=== PATIENT | male | born 1945 | race Caucasian/White ===

== ENCOUNTER 2021-04-06 12:05 | Inpatient (IN) ==
[2021-04-06] MEDS ORDERED: SODIUM CHLORIDE 0.9% 1,000 ML IV STA ×2 (13:36→16:16)
[2021-04-06] MEDS ORDERED: ACETAMINOPHEN 500 MG TABLET PO STA (13:39)
[2021-04-06 14:31] LABS: Basophils # 0.1 10*3/uL (0.0-0.2); Basophils % 0.4 % (0.0-0.8); Eosinophils % 0.2 % (0.00-10.9); Hematocrit 35.6 VOL% (42.0-52.0); Hemoglobin 11.9 GM/DL (14.0-18.0); Immature Granulocytes % 0.7 %; Immature Granulocytes Absolute 0.09 #; Lymphocytes # 1.2 10*3/uL (1.4-4.0); Lymphocytes % 9.1 % (21.2-54.2); Mean Corpuscular HGB Conc 33.4 GM/DL (32-36); Mean Corpuscular Volume 90.6 FL (87-102); Mean Platelet Volume 10.8 FL (9.6-12.0); Monocytes % 18.1 % (1.7-12.7); Neutrophils % 71.5 % (38.7-73.9); Platelet Count 426 T/CUMM (130-400); Red Blood Count 3.93 MC/CUMM (3.8-5.5); Red Cell Distribution Width 13.7 % (9.3-17.3); White Blood Count 13.5 T/CUMM (4-12)
[2021-04-06 14:55] LABS: Albumin 2.8 G/DL (3.4-5.0); Bilirubin,Total 1.7 MG/DL (0.20-1.00); Calcium 9.7 MG/DL (8.5-10.1); Osmolality,Calculated 271.4 MOS/KG (273-304); Potassium 3.4 MMOL/L (3.5-5.1); Total Protein 8.7 G/DL (6.4-8.2)
[2021-04-06 15:00] LABS: Lymphocytes 11 % (20-55); Segmented Neutrophils 73 % (50-85); Total Cells Counted 100
[2021-04-06 15:05] LABS: Anisocytosis Slight
[2021-04-06 15:06] LABS: Hypochromasia Slight
[2021-04-06] MEDS ORDERED: PIPERACILLIN/TAZOBACTAM 3,375 MG in SODIUM CHLORIDE 0.9% 100 ML IV STA (16:16)
[2021-04-06] MEDS ORDERED: SIMETHICONE CHEW 125 MG TABLET PO PRN (16:48)
[2021-04-06] MEDS ORDERED: DOCUSATE SODIUM 100 MG CAPSULE PO PRN (16:48)
[2021-04-06] MEDS ORDERED: DEXTROSE 50% 25 GM/50 ML VIAL IV PRN (16:48)
[2021-04-06] MEDS ORDERED: GLUCAGON 1 MG VIAL IM PRN (16:48)
[2021-04-06] MEDS ORDERED: hydrALAZINE 20 MG/1 ML VIAL IV PRN (16:48)
[2021-04-06] MEDS ORDERED: diphenhydrAMINE CAP 25 MG CAPSULE PO PRN (16:48)
[2021-04-06] MEDS ORDERED: ONDANSETRON 4 MG/2 ML VIAL IV PRN (16:48)
[2021-04-06 16:57] LABS: Bilirubin,Urine Small mg/dL (Negative); Blood, Urine Negative (Negative); Glucose,Urine (UA) Negative (Negative); Hyaline Casts,Urine 7 /LPF (0-3); Ketones,Urine Negative (Negative); Mucus,Urine Occasional /LPF (Occasional); Nitrite,Urine Negative (Negative); Protein,Urine 100 MG/DL; RBC,Urine 5 /HPF (0-4); Squamous Epithelial Cell,Urine Occasional /HPF (0-10); Urine Appearance Slightly Hazy (Clear); Urine Color Amber (Yellow); Urine Specific Gravity 1.021 (1.001-1.035)
[2021-04-06] MEDS: LACTATED RINGERS 1,000 ML IV SCH (18:15)
[2021-04-06] MEDS: cefTRIAXone 1,000 MG in SODIUM CHLORIDE 0.9% 100 ML IV SCH (18:16)
[2021-04-06] MEDS: ENOXAPARIN 40 MG/0.4 ML SYRINGE SUBCUT SCH (21:59)
[2021-04-06] MEDS: allopurinoL 100 MG TABLET PO SCH (21:59)
[2021-04-06] MEDS: METOPROLOL TARTRATE 25 MG TABLET PO SCH (21:59)
[2021-04-07 05:04] LABS: Basophils # 0.1 10*3/uL (0.0-0.2); Basophils % 0.4 % (0.0-0.8); Eosinophils # 0.1 10*3/uL (0.0-0.87); Eosinophils % 0.7 % (0.00-10.9); Hemoglobin 11.2 GM/DL (14.0-18.0); Immature Granulocytes % 0.7 %; Immature Granulocytes Absolute 0.09 #; Lymphocytes # 2.2 10*3/uL (1.4-4.0); Lymphocytes % 17.2 % (21.2-54.2); Mean Corpuscular HGB Conc 33.9 GM/DL (32-36); Mean Corpuscular Volume 91.4 FL (87-102); Mean Platelet Volume 11.1 FL (9.6-12.0); Monocytes % 16.8 % (1.7-12.7); Neutrophils % 64.2 % (38.7-73.9); Platelet Count 393 T/CUMM (130-400); Red Blood Count 3.61 MC/CUMM (3.8-5.5); Red Cell Distribution Width 13.6 % (9.3-17.3); White Blood Count 12.8 T/CUMM (4-12)
[2021-04-07 05:31] LABS: Albumin 2.3 G/DL (3.4-5.0); Bilirubin,Direct 1.27 MG/DL (0.0-0.20); Bilirubin,Indirect 0.7 MG/DL (0.0-1.0); Total Protein 7.6 G/DL (6.4-8.2)
[2021-04-07 05:36] LABS: Calcium 9.4 MG/DL (8.5-10.1); Osmolality,Calculated 272.1 MOS/KG (273-304); Potassium 2.9 MMOL/L (3.5-5.1); Risk Ratio 2.76; Total Cells Counted 100; VLDL Cholesterol 13.2 MG/DL
[2021-04-07 05:37] LABS: Band Neutrophils 4 % (0-10); Lymphocytes 17 % (20-55); Platelet Estimate Increased; Segmented Neutrophils 67 % (50-85)
[2021-04-07 05:57] LABS: Anisocytosis 1+; Hypochromasia Slight
[2021-04-07] MEDS: POTASSIUM CHLORIDE 20 MEQ TABLET PO SCH (08:33)
[2021-04-07] MEDS: PANTOPRAZOLE 40 MG TABLET PO SCH (08:33)
[2021-04-07] MEDS: METOPROLOL TARTRATE 25 MG TABLET PO SCH ×2 (08:33→20:27)
[2021-04-07] MEDS: allopurinoL 100 MG TABLET PO SCH ×2 (08:34→20:27)
[2021-04-07] MEDS: TAMSULOSIN 0.4 MG CAPSULE PO SCH (08:34)
[2021-04-07] MEDS: ACETAMINOPHEN 325 MG TABLET PO PRN (08:39)
[2021-04-07] MEDS ORDERED: hydroCHLOROthiazide 12.5 MG CAPSULE PO SCH (09:00)
[2021-04-07] MEDS: POTASSIUM CHLORIDE 20 MEQ TABLET PO PRN ×3 (11:41→17:50)
[2021-04-07] MEDS: cefTRIAXone 1,000 MG in SODIUM CHLORIDE 0.9% 100 ML IV SCH (18:47)
[2021-04-07] MEDS: SIMVASTATIN 20 MG TABLET PO SCH (20:27)
[2021-04-07] MEDS: LACTATED RINGERS 1,000 ML IV SCH ×2 (20:28→23:29)
[2021-04-07] MEDS: ENOXAPARIN 40 MG/0.4 ML SYRINGE SUBCUT SCH (20:28)
[2021-04-08] MEDS: POTASSIUM CHLORIDE 20 MEQ TABLET PO PRN (05:11)
[2021-04-08 06:12] LABS: Basophils % 0.3 % (0.0-0.8); Eosinophils # 0.1 10*3/uL (0.0-0.87); Hemoglobin 11.8 GM/DL (14.0-18.0); Immature Granulocytes % 0.8 %; Immature Granulocytes Absolute 0.11 #; Lymphocytes # 1.4 10*3/uL (1.4-4.0); Lymphocytes % 10.4 % (21.2-54.2); Mean Corpuscular HGB Conc 32.8 GM/DL (32-36); Mean Corpuscular Volume 92.3 FL (87-102); Mean Platelet Volume 11.2 FL (9.6-12.0); Monocytes % 10.9 % (1.7-12.7); Neutrophils % 76.6 % (38.7-73.9); Platelet Count 388 T/CUMM (130-400); Red Cell Distribution Width 13.9 % (9.3-17.3); White Blood Count 13.4 T/CUMM (4-12)
[2021-04-08 06:47] LABS: Albumin 2.1 G/DL (3.4-5.0); Bilirubin,Total 1.1 MG/DL (0.20-1.00); Calcium 9.9 MG/DL (8.5-10.1); Potassium 3.1 MMOL/L (3.5-5.1); Total Protein 7.8 G/DL (6.4-8.2)
[2021-04-08 07:14] LABS: Hepatitis B Core IgM Quant 0.09 Index; Hepatitis B Surface Ag Quant 0.11 Index; Hepatitis B Surface Ag Result Non-Reactive (NonReactive); Hepatitis C Virus Ab Quant 0.07 Index; Hepatitis C Virus Ab Result Non-Reactive (NonReactive)
[2021-04-08] MEDS ORDERED: POTASSIUM CHLORIDE 20 MEQ TABLET PO ONE (08:00)
[2021-04-08] MEDS: amLODIPine 5 MG TABLET PO SCH (08:56)
[2021-04-08] MEDS: allopurinoL 100 MG TABLET PO SCH ×2 (08:56→22:19)
[2021-04-08] MEDS: POTASSIUM CHLORIDE 20 MEQ TABLET PO SCH (08:56)
[2021-04-08] MEDS: TAMSULOSIN 0.4 MG CAPSULE PO SCH (08:56)
[2021-04-08] MEDS: METOPROLOL TARTRATE 25 MG TABLET PO SCH ×2 (08:57→22:18)
[2021-04-08] MEDS: PANTOPRAZOLE 40 MG TABLET PO SCH (08:57)
[2021-04-08] MEDS: ACETAMINOPHEN 325 MG TABLET PO PRN (09:41)
[2021-04-08] MEDS: LACTATED RINGERS 1,000 ML IV SCH (14:48)
[2021-04-08] MEDS: cefTRIAXone 1,000 MG in SODIUM CHLORIDE 0.9% 100 ML IV SCH (17:19)
[2021-04-08] MEDS: SIMVASTATIN 20 MG TABLET PO SCH (22:18)
[2021-04-08] MEDS: ENOXAPARIN 40 MG/0.4 ML SYRINGE SUBCUT SCH (22:19)
[2021-04-09] MEDS: LACTATED RINGERS 1,000 ML IV SCH ×5 (00:48→22:22)
[2021-04-09 04:55] LABS: Basophils # 0.1 10*3/uL (0.0-0.2); Basophils % 0.3 % (0.0-0.8); Eosinophils # 0.2 10*3/uL (0.0-0.87); Eosinophils % 0.8 % (0.00-10.9); Hematocrit 37.3 VOL% (42.0-52.0); Hemoglobin 12.2 GM/DL (14.0-18.0); Immature Granulocytes Absolute 0.18 #; Lymphocytes # 1.9 10*3/uL (1.4-4.0); Lymphocytes % 10.6 % (21.2-54.2); Mean Corpuscular HGB Conc 32.7 GM/DL (32-36); Mean Corpuscular Volume 91.9 FL (87-102); Mean Platelet Volume 11.2 FL (9.6-12.0); Monocytes % 7.4 % (1.7-12.7); Neutrophils % 79.9 % (38.7-73.9); Platelet Count 549 T/CUMM (130-400); Red Blood Count 4.06 MC/CUMM (3.8-5.5); Red Cell Distribution Width 13.9 % (9.3-17.3); White Blood Count 18.3 T/CUMM (4-12)
[2021-04-09 05:51] LABS: Bilirubin,Total 1.4 MG/DL (0.20-1.00); Calcium 10.5 MG/DL (8.5-10.1); Osmolality,Calculated 275.1 MOS/KG (273-304); Potassium 3.4 MMOL/L (3.5-5.1); Total Protein 8.3 G/DL (6.4-8.2)
[2021-04-09] MEDS: POTASSIUM CHLORIDE RIDER 10 MEQ/100 ML PREMIX IV PRN ×3 (08:30→12:30)
[2021-04-09] MEDS ORDERED: METOPROLOL TARTRATE 5 MG/5 ML VIAL IV ONE (08:43)
[2021-04-09] MEDS: PANTOPRAZOLE 40 MG TABLET PO SCH (09:51)
[2021-04-09] MEDS: TAMSULOSIN 0.4 MG CAPSULE PO SCH (09:51)
[2021-04-09] MEDS: POTASSIUM CHLORIDE 20 MEQ TABLET PO SCH (09:51)
[2021-04-09] MEDS: allopurinoL 100 MG TABLET PO SCH ×2 (09:51→20:02)
[2021-04-09] MEDS: METOPROLOL TARTRATE 25 MG TABLET PO SCH ×2 (09:51→20:01)
[2021-04-09] MEDS: amLODIPine 5 MG TABLET PO SCH (09:51)
[2021-04-09] MEDS: cefTRIAXone 1,000 MG in SODIUM CHLORIDE 0.9% 100 ML IV SCH (17:22)
[2021-04-09] MEDS: SIMVASTATIN 20 MG TABLET PO SCH (20:01)
[2021-04-09] MEDS: ENOXAPARIN 40 MG/0.4 ML SYRINGE SUBCUT SCH (20:16)
[2021-04-10 06:16] LABS: Basophils # 0.1 10*3/uL (0.0-0.2); Basophils % 0.5 % (0.0-0.8); Eosinophils # 0.4 10*3/uL (0.0-0.87); Eosinophils % 2.8 % (0.00-10.9); Hematocrit 41.2 VOL% (42.0-52.0); Immature Granulocytes % 1.1 %; Immature Granulocytes Absolute 0.16 #; Lymphocytes # 2.1 10*3/uL (1.4-4.0); Lymphocytes % 14.9 % (21.2-54.2); Mean Corpuscular HGB Conc 31.6 GM/DL (32-36); Mean Corpuscular Volume 95.4 FL (87-102); Mean Platelet Volume 12.7 FL (9.6-12.0); Monocytes % 8.2 % (1.7-12.7); Neutrophils % 72.5 % (38.7-73.9); Red Blood Count 4.32 MC/CUMM (3.8-5.5); Red Cell Distribution Width 14.6 % (9.3-17.3); White Blood Count 14.1 T/CUMM (4-12)
[2021-04-10 06:37] LABS: Platelet Count 342 T/CUMM (130-400)
[2021-04-10 07:20] LABS: Albumin 2.2 G/DL (3.4-5.0); Calcium 9.9 MG/DL (8.5-10.1); Osmolality,Calculated 281.7 MOS/KG (273-304); Potassium 3.6 MMOL/L (3.5-5.1); Total Protein 7.8 G/DL (6.4-8.2)
[2021-04-10] MEDS: TAMSULOSIN 0.4 MG CAPSULE PO SCH (08:19)
[2021-04-10] MEDS: LACTATED RINGERS 1,000 ML IV SCH ×2 (08:19→14:51)
[2021-04-10] MEDS: PANTOPRAZOLE 40 MG TABLET PO SCH (08:20)
[2021-04-10] MEDS: allopurinoL 100 MG TABLET PO SCH ×2 (08:20→20:16)
[2021-04-10] MEDS: POTASSIUM CHLORIDE 20 MEQ TABLET PO SCH (08:20)
[2021-04-10] MEDS: METOPROLOL TARTRATE 25 MG TABLET PO SCH (08:20)
[2021-04-10] MEDS: amLODIPine 5 MG TABLET PO SCH (08:20)
[2021-04-10] MEDS: metroNIDAZOLE INJ 500 MG in PREMIX 1 EACH IV SCH ×2 (11:28→20:11)
[2021-04-10] MEDS: CIPROFLOXACIN INJ 400 MG/200 ML PREMIX IV SCH (13:52)
[2021-04-10] MEDS: METOPROLOL TARTRATE 5 MG/5 ML VIAL IV SCH (17:17)
[2021-04-10] MEDS: ENOXAPARIN 40 MG/0.4 ML SYRINGE SUBCUT SCH (20:11)
[2021-04-10] MEDS: SIMVASTATIN 20 MG TABLET PO SCH (20:16)
[2021-04-11] MEDS: CIPROFLOXACIN INJ 400 MG/200 ML PREMIX IV SCH ×2 (00:36→15:00)
[2021-04-11] MEDS: METOPROLOL TARTRATE 5 MG/5 ML VIAL IV SCH ×4 (00:36→18:14)
[2021-04-11] MEDS: metroNIDAZOLE INJ 500 MG in PREMIX 1 EACH IV SCH ×3 (03:20→18:57)
[2021-04-11] MEDS: LACTATED RINGERS 1,000 ML IV SCH ×3 (03:20→15:36)
[2021-04-11 05:12] LABS: Basophils # 0.1 10*3/uL (0.0-0.2); Basophils % 0.5 % (0.0-0.8); Eosinophils # 0.4 10*3/uL (0.0-0.87); Eosinophils % 1.8 % (0.00-10.9); Hematocrit 39.7 VOL% (42.0-52.0); Hemoglobin 12.8 GM/DL (14.0-18.0); Immature Granulocytes % 1.2 %; Immature Granulocytes Absolute 0.25 #; Lymphocytes # 2.5 10*3/uL (1.4-4.0); Lymphocytes % 11.7 % (21.2-54.2); Mean Corpuscular HGB Conc 32.2 GM/DL (32-36); Mean Corpuscular Volume 93.2 FL (87-102); Mean Platelet Volume 11.4 FL (9.6-12.0); Monocytes % 8.7 % (1.7-12.7); Neutrophils % 76.1 % (38.7-73.9); Platelet Count 583 T/CUMM (130-400); Red Blood Count 4.26 MC/CUMM (3.8-5.5); Red Cell Distribution Width 14.8 % (9.3-17.3); White Blood Count 21.2 T/CUMM (4-12)
[2021-04-11 05:35] LABS: Eosinophils 3 % (0-10); Hypochromasia 1+; Lymphocytes 17 % (20-55); Segmented Neutrophils 74 % (50-85); Total Cells Counted 100
[2021-04-11 05:36] LABS: Microcytosis 1+
[2021-04-11 08:08] LABS: INR 1.4
[2021-04-11 08:16] LABS: Albumin 2.2 G/DL (3.4-5.0); Bilirubin,Total 1.7 MG/DL (0.20-1.00); Calcium 10.1 MG/DL (8.5-10.1); Potassium 3.7 MMOL/L (3.5-5.1); Total Protein 8.7 G/DL (6.4-8.2)
[2021-04-11] MEDS: allopurinoL 100 MG TABLET PO SCH ×2 (10:02→21:22)
[2021-04-11] MEDS ORDERED: MAGNESIUM SULF RIDER 2 GM/50 ML PREMIX IV ONE (12:51)
[2021-04-11] MEDS: POTASSIUM CHLORIDE 20 MEQ TABLET PO SCH (16:34)
[2021-04-11] MEDS: TAMSULOSIN 0.4 MG CAPSULE PO SCH (16:34)
[2021-04-11] MEDS: amLODIPine 5 MG TABLET PO SCH (16:35)
[2021-04-11] MEDS: PANTOPRAZOLE 40 MG TABLET PO SCH (16:37)
[2021-04-11] MEDS: SIMVASTATIN 20 MG TABLET PO SCH (21:22)
[2021-04-11] MEDS: ENOXAPARIN 40 MG/0.4 ML SYRINGE SUBCUT SCH (21:22)
[2021-04-12] MEDS: METOPROLOL TARTRATE 5 MG/5 ML VIAL IV SCH ×5 (00:24→23:55)
[2021-04-12] MEDS: CIPROFLOXACIN INJ 400 MG/200 ML PREMIX IV SCH ×3 (00:24→23:55)
[2021-04-12] MEDS: LACTATED RINGERS 1,000 ML IV SCH ×3 (03:30→20:38)
[2021-04-12] MEDS: metroNIDAZOLE INJ 500 MG in PREMIX 1 EACH IV SCH ×3 (03:30→20:38)
[2021-04-12 06:57] LABS: Albumin 2.1 G/DL (3.4-5.0); Bilirubin,Total 2.7 MG/DL (0.20-1.00); Calcium 9.7 MG/DL (8.5-10.1); Osmolality,Calculated 274.8 MOS/KG (273-304); Potassium 3.5 MMOL/L (3.5-5.1)
[2021-04-12 08:01] LABS: Basophils # 0.1 10*3/uL (0.0-0.2); Basophils % 0.3 % (0.0-0.8); Eosinophils # 0.3 10*3/uL (0.0-0.87); Eosinophils % 1.4 % (0.00-10.9); Hematocrit 36.7 VOL% (42.0-52.0); Hemoglobin 11.7 GM/DL (14.0-18.0); Immature Granulocytes % 1.2 %; Immature Granulocytes Absolute 0.25 #; Lymphocytes # 2.2 10*3/uL (1.4-4.0); Lymphocytes % 10.8 % (21.2-54.2); Mean Corpuscular HGB Conc 31.9 GM/DL (32-36); Mean Corpuscular Volume 92.7 FL (87-102); Mean Platelet Volume 10.8 FL (9.6-12.0); Monocytes % 7.7 % (1.7-12.7); Neutrophils % 78.6 % (38.7-73.9); Platelet Count 598 T/CUMM (130-400); Red Blood Count 3.96 MC/CUMM (3.8-5.5); Red Cell Distribution Width 14.9 % (9.3-17.3); White Blood Count 20.3 T/CUMM (4-12)
[2021-04-12] MEDS: amLODIPine 5 MG TABLET PO SCH (08:08)
[2021-04-12] MEDS: TAMSULOSIN 0.4 MG CAPSULE PO SCH (08:08)
[2021-04-12] MEDS: allopurinoL 100 MG TABLET PO SCH ×2 (08:09→20:37)
[2021-04-12] MEDS: POTASSIUM CHLORIDE 20 MEQ TABLET PO SCH (08:09)
[2021-04-12] MEDS: PANTOPRAZOLE 40 MG TABLET PO SCH (08:09)
[2021-04-12 08:13] LABS: Eosinophils 1 % (0-10); Hypochromasia 1+; Lymphocytes 15 % (20-55); Microcytosis 1+; Platelet Estimate Adequate; Segmented Neutrophils 81 % (50-85); Total Cells Counted 100
[2021-04-12] MEDS: ACETAMINOPHEN 325 MG TABLET PO PRN (15:19)
[2021-04-12] MEDS: SIMVASTATIN 20 MG TABLET PO SCH (20:37)
[2021-04-12] MEDS: ENOXAPARIN 40 MG/0.4 ML SYRINGE SUBCUT SCH (20:38)
[2021-04-13] MEDS: metroNIDAZOLE INJ 500 MG in PREMIX 1 EACH IV SCH ×3 (04:20→20:24)
[2021-04-13 05:15] LABS: Basophils # 0.1 10*3/uL (0.0-0.2); Basophils % 0.4 % (0.0-0.8); Eosinophils # 0.2 10*3/uL (0.0-0.87); Hematocrit 33.2 VOL% (42.0-52.0); Hemoglobin 10.7 GM/DL (14.0-18.0); Immature Granulocytes % 1.6 %; Immature Granulocytes Absolute 0.37 #; Lymphocytes # 2.8 10*3/uL (1.4-4.0); Lymphocytes % 11.8 % (21.2-54.2); Mean Corpuscular HGB Conc 32.2 GM/DL (32-36); Mean Corpuscular Volume 92.2 FL (87-102); Mean Platelet Volume 10.7 FL (9.6-12.0); Monocytes % 8.4 % (1.7-12.7); Neutrophils % 76.8 % (38.7-73.9); Platelet Count 560 T/CUMM (130-400); Red Cell Distribution Width 14.8 % (9.3-17.3); White Blood Count 23.4 T/CUMM (4-12)
[2021-04-13 05:20] LABS: Calcium 9.4 MG/DL (8.5-10.1); Osmolality,Calculated 277.5 MOS/KG (273-304); Potassium 3.2 MMOL/L (3.5-5.1)
[2021-04-13] MEDS: METOPROLOL TARTRATE 5 MG/5 ML VIAL IV SCH ×4 (05:37→23:59)
[2021-04-13 05:38] LABS: Band Neutrophils 1 % (0-10); Eosinophils 2 % (0-10); Hypochromasia 1+; Lymphocytes 10 % (20-55); Microcytosis 1+; Platelet Estimate Increased; Segmented Neutrophils 81 % (50-85); Total Cells Counted 100
[2021-04-13] MEDS: POTASSIUM CHLORIDE 20 MEQ TABLET PO SCH (08:01)
[2021-04-13] MEDS: PANTOPRAZOLE 40 MG TABLET PO SCH (08:01)
[2021-04-13] MEDS: TAMSULOSIN 0.4 MG CAPSULE PO SCH (08:01)
[2021-04-13] MEDS: allopurinoL 100 MG TABLET PO SCH ×2 (08:01→20:26)
[2021-04-13] MEDS: amLODIPine 5 MG TABLET PO SCH (08:01)
[2021-04-13] MEDS: LACTATED RINGERS 1,000 ML IV SCH ×3 (08:02→23:59)
[2021-04-13] MEDS ORDERED: MAGNESIUM SULF RIDER 4 GM/100 ML PREMIX IV PRN (10:54)
[2021-04-13] MEDS: CIPROFLOXACIN INJ 400 MG/200 ML PREMIX IV SCH ×2 (12:11→23:58)
[2021-04-13] MEDS: MAGNESIUM SULF RIDER 2 GM/50 ML PREMIX IV PRN (14:43)
[2021-04-13] MEDS: POTASSIUM CHLORIDE RIDER 10 MEQ/100 ML PREMIX IV PRN ×2 (16:58→18:11)
[2021-04-13] MEDS: SIMVASTATIN 20 MG TABLET PO SCH (20:26)
[2021-04-13] MEDS: ENOXAPARIN 40 MG/0.4 ML SYRINGE SUBCUT SCH (20:26)
[2021-04-14] MEDS: LACTATED RINGERS 1,000 ML IV SCH ×3 (01:12→18:34)
[2021-04-14] MEDS: metroNIDAZOLE INJ 500 MG in PREMIX 1 EACH IV SCH ×3 (02:51→20:45)
[2021-04-14 05:18] LABS: Basophils # 0.1 10*3/uL (0.0-0.2); Basophils % 0.5 % (0.0-0.8); Eosinophils # 0.3 10*3/uL (0.0-0.87); Eosinophils % 1.3 % (0.00-10.9); Hematocrit 33.7 VOL% (42.0-52.0); Hemoglobin 10.8 GM/DL (14.0-18.0); Immature Granulocytes % 1.9 %; Immature Granulocytes Absolute 0.42 #; Lymphocytes # 2.5 10*3/uL (1.4-4.0); Lymphocytes % 11.7 % (21.2-54.2); Mean Corpuscular Volume 93.4 FL (87-102); Mean Platelet Volume 10.9 FL (9.6-12.0); Neutrophils % 76.6 % (38.7-73.9); Platelet Count 507 T/CUMM (130-400); Red Blood Count 3.61 MC/CUMM (3.8-5.5); Red Cell Distribution Width 15.1 % (9.3-17.3); White Blood Count 21.7 T/CUMM (4-12)
[2021-04-14] MEDS: METOPROLOL TARTRATE 5 MG/5 ML VIAL IV SCH ×4 (05:20→23:54)
[2021-04-14 05:37] LABS: Calcium 9.4 MG/DL (8.5-10.1); Potassium 3.5 MMOL/L (3.5-5.1)
[2021-04-14 05:40] LABS: Eosinophils 3 % (0-10); Lymphocytes 5 % (20-55); Platelet Estimate Increased; Segmented Neutrophils 82 % (50-85); Total Cells Counted 100
[2021-04-14] MEDS: TAMSULOSIN 0.4 MG CAPSULE PO SCH (08:22)
[2021-04-14] MEDS: POTASSIUM CHLORIDE 20 MEQ TABLET PO SCH (08:22)
[2021-04-14] MEDS: allopurinoL 100 MG TABLET PO SCH ×2 (08:22→20:45)
[2021-04-14] MEDS: amLODIPine 5 MG TABLET PO SCH (08:22)
[2021-04-14] MEDS: PANTOPRAZOLE 40 MG TABLET PO SCH (08:22)
[2021-04-14] MEDS: CIPROFLOXACIN INJ 400 MG/200 ML PREMIX IV SCH ×2 (11:58→23:54)
[2021-04-14] MEDS: ENOXAPARIN 40 MG/0.4 ML SYRINGE SUBCUT SCH (20:45)
[2021-04-14] MEDS: SIMVASTATIN 20 MG TABLET PO SCH (20:45)
[2021-04-15] MEDS: metroNIDAZOLE INJ 500 MG in PREMIX 1 EACH IV SCH ×3 (03:19→21:17)
[2021-04-15] MEDS: METOPROLOL TARTRATE 5 MG/5 ML VIAL IV SCH ×3 (05:25→17:05)
[2021-04-15 05:36] LABS: Basophils # 0.1 10*3/uL (0.0-0.2); Basophils % 0.5 % (0.0-0.8); Eosinophils # 0.3 10*3/uL (0.0-0.87); Eosinophils % 1.7 % (0.00-10.9); Hematocrit 32.9 VOL% (42.0-52.0); Hemoglobin 10.6 GM/DL (14.0-18.0); Immature Granulocytes % 2.2 %; Immature Granulocytes Absolute 0.44 #; Lymphocytes # 2.8 10*3/uL (1.4-4.0); Lymphocytes % 14.1 % (21.2-54.2); Mean Corpuscular HGB Conc 32.2 GM/DL (32-36); Mean Corpuscular Volume 92.9 FL (87-102); Mean Platelet Volume 10.8 FL (9.6-12.0); Monocytes % 7.6 % (1.7-12.7); Neutrophils % 73.9 % (38.7-73.9); Platelet Count 503 T/CUMM (130-400); Red Blood Count 3.54 MC/CUMM (3.8-5.5); White Blood Count 19.6 T/CUMM (4-12)
[2021-04-15 06:19] LABS: Calcium 9.3 MG/DL (8.5-10.1); Osmolality,Calculated 272.7 MOS/KG (273-304); Potassium 3.4 MMOL/L (3.5-5.1)
[2021-04-15] MEDS: MAGNESIUM SULF RIDER 2 GM/50 ML PREMIX IV PRN (06:29)
[2021-04-15] MEDS: POTASSIUM CHLORIDE 20 MEQ TABLET PO SCH (08:24)
[2021-04-15] MEDS: PANTOPRAZOLE 40 MG TABLET PO SCH (08:25)
[2021-04-15] MEDS: TAMSULOSIN 0.4 MG CAPSULE PO SCH (08:25)
[2021-04-15] MEDS: allopurinoL 100 MG TABLET PO SCH ×2 (08:25→21:15)
[2021-04-15] MEDS: LACTATED RINGERS 1,000 ML IV SCH ×2 (08:25→21:16)
[2021-04-15] MEDS: POTASSIUM CHLORIDE 20 MEQ TABLET PO PRN ×3 (08:25→13:20)
[2021-04-15] MEDS: amLODIPine 5 MG TABLET PO SCH (08:25)
[2021-04-15] MEDS: POLYETHYLENE GLYCOL POWDER 17 GM PACK PO SCH (10:58)
[2021-04-15] MEDS: CIPROFLOXACIN INJ 400 MG/200 ML PREMIX IV SCH (12:21)
[2021-04-15] MEDS: DOCUSATE SODIUM 100 MG CAPSULE PO SCH (21:15)
[2021-04-15] MEDS: ENOXAPARIN 40 MG/0.4 ML SYRINGE SUBCUT SCH (21:16)
[2021-04-15] MEDS: SIMVASTATIN 20 MG TABLET PO SCH (21:16)
[2021-04-16] MEDS: METOPROLOL TARTRATE 5 MG/5 ML VIAL IV SCH ×4 (00:03→17:52)
[2021-04-16] MEDS: CIPROFLOXACIN INJ 400 MG/200 ML PREMIX IV SCH ×2 (00:03→13:35)
[2021-04-16] MEDS: metroNIDAZOLE INJ 500 MG in PREMIX 1 EACH IV SCH ×3 (04:17→20:34)
[2021-04-16] MEDS: LACTATED RINGERS 1,000 ML IV SCH ×4 (04:56→17:55)
[2021-04-16 06:06] LABS: Basophils # 0.1 10*3/uL (0.0-0.2); Basophils % 0.6 % (0.0-0.8); Eosinophils # 0.3 10*3/uL (0.0-0.87); Eosinophils % 1.4 % (0.00-10.9); Hematocrit 32.6 VOL% (42.0-52.0); Hemoglobin 10.6 GM/DL (14.0-18.0); Immature Granulocytes Absolute 0.42 #; Lymphocytes # 3.1 10*3/uL (1.4-4.0); Lymphocytes % 14.8 % (21.2-54.2); Mean Corpuscular HGB Conc 32.5 GM/DL (32-36); Mean Corpuscular Volume 92.6 FL (87-102); Mean Platelet Volume 12.1 FL (9.6-12.0); Monocytes % 7.8 % (1.7-12.7); Neutrophils % 73.4 % (38.7-73.9); Platelet Count 296 T/CUMM (130-400); Red Blood Count 3.52 MC/CUMM (3.8-5.5); Red Cell Distribution Width 15.2 % (9.3-17.3); White Blood Count 20.6 T/CUMM (4-12)
[2021-04-16 06:20] LABS: Calcium 9.3 MG/DL (8.5-10.1); Potassium 3.7 MMOL/L (3.5-5.1)
[2021-04-16 06:42] LABS: Eosinophils 3 % (0-10); Lymphocytes 17 % (20-55); Metamyelocytes 4 %; Platelet Estimate Increased; Segmented Neutrophils 67 % (50-85); Total Cells Counted 100
[2021-04-16] MEDS: TAMSULOSIN 0.4 MG CAPSULE PO SCH (09:41)
[2021-04-16] MEDS: POLYETHYLENE GLYCOL POWDER 17 GM PACK PO SCH (09:41)
[2021-04-16] MEDS: DOCUSATE SODIUM 100 MG CAPSULE PO SCH ×2 (09:41→20:33)
[2021-04-16] MEDS: PANTOPRAZOLE 40 MG TABLET PO SCH (09:41)
[2021-04-16] MEDS: allopurinoL 100 MG TABLET PO SCH ×2 (09:41→20:33)
[2021-04-16] MEDS: POTASSIUM CHLORIDE 20 MEQ TABLET PO SCH (09:41)
[2021-04-16] MEDS: amLODIPine 5 MG TABLET PO SCH (11:52)
[2021-04-16] MEDS ORDERED: LOSARTAN 25 MG TABLET PO SCH (12:00)
[2021-04-16] MEDS: SIMVASTATIN 20 MG TABLET PO SCH (20:33)
[2021-04-16] MEDS: ENOXAPARIN 40 MG/0.4 ML SYRINGE SUBCUT SCH (20:34)
[2021-04-17] MEDS: metroNIDAZOLE INJ 500 MG in PREMIX 1 EACH IV SCH ×3 (03:50→21:14)
[2021-04-17] MEDS: LACTATED RINGERS 1,000 ML IV SCH ×3 (03:50→17:02)
[2021-04-17] MEDS: METOPROLOL TARTRATE 5 MG/5 ML VIAL IV SCH ×4 (05:51→18:15)
[2021-04-17 07:46] LABS: Basophils # 0.1 10*3/uL (0.0-0.2); Basophils % 0.5 % (0.0-0.8); Eosinophils # 0.3 10*3/uL (0.0-0.87); Eosinophils % 1.9 % (0.00-10.9); Hematocrit 30.1 VOL% (42.0-52.0); Immature Granulocytes % 1.6 %; Immature Granulocytes Absolute 0.28 #; Lymphocytes # 2.5 10*3/uL (1.4-4.0); Lymphocytes % 14.8 % (21.2-54.2); Mean Corpuscular HGB Conc 33.2 GM/DL (32-36); Mean Corpuscular Volume 91.5 FL (87-102); Mean Platelet Volume 10.4 FL (9.6-12.0); Monocytes % 9.3 % (1.7-12.7); Neutrophils % 71.9 % (38.7-73.9); Red Blood Count 3.29 MC/CUMM (3.8-5.5); Red Cell Distribution Width 15.1 % (9.3-17.3); White Blood Count 17.1 T/CUMM (4-12)
[2021-04-17 07:47] LABS: Platelet Count 406 T/CUMM (130-400)
[2021-04-17] MEDS: TAMSULOSIN 0.4 MG CAPSULE PO SCH (08:17)
[2021-04-17] MEDS: POTASSIUM CHLORIDE 20 MEQ TABLET PO SCH (08:17)
[2021-04-17] MEDS: DOCUSATE SODIUM 100 MG CAPSULE PO SCH ×2 (08:17→21:14)
[2021-04-17] MEDS: amLODIPine 10 MG TABLET PO SCH (08:17)
[2021-04-17] MEDS: POLYETHYLENE GLYCOL POWDER 17 GM PACK PO SCH (08:18)
[2021-04-17] MEDS: LOSARTAN 50 MG TABLET PO SCH (08:18)
[2021-04-17] MEDS: PANTOPRAZOLE 40 MG TABLET PO SCH (08:18)
[2021-04-17] MEDS: allopurinoL 100 MG TABLET PO SCH ×2 (08:18→21:14)
[2021-04-17] MEDS: CIPROFLOXACIN INJ 400 MG/200 ML PREMIX IV SCH ×2 (14:40)
[2021-04-17] MEDS: ENOXAPARIN 40 MG/0.4 ML SYRINGE SUBCUT SCH (21:13)
[2021-04-17] MEDS: SIMVASTATIN 20 MG TABLET PO SCH (21:14)
[2021-04-18] MEDS: LACTATED RINGERS 1,000 ML IV SCH ×2 (00:27→10:03)
[2021-04-18] MEDS: METOPROLOL TARTRATE 5 MG/5 ML VIAL IV SCH ×4 (00:27→18:59)
[2021-04-18 06:04] LABS: Basophils # 0.1 10*3/uL (0.0-0.2); Basophils % 0.6 % (0.0-0.8); Eosinophils # 0.4 10*3/uL (0.0-0.87); Eosinophils % 2.1 % (0.00-10.9); Hematocrit 32.1 VOL% (42.0-52.0); Hemoglobin 10.2 GM/DL (14.0-18.0); Immature Granulocytes % 1.2 %; Immature Granulocytes Absolute 0.22 #; Mean Corpuscular HGB Conc 31.8 GM/DL (32-36); Mean Corpuscular Volume 92.2 FL (87-102); Mean Platelet Volume 11.3 FL (9.6-12.0); Monocytes % 8.8 % (1.7-12.7); Neutrophils % 70.3 % (38.7-73.9); Platelet Count 401 T/CUMM (130-400); Red Blood Count 3.48 MC/CUMM (3.8-5.5); Red Cell Distribution Width 15.1 % (9.3-17.3); White Blood Count 17.7 T/CUMM (4-12)
[2021-04-18 06:27] LABS: Calcium 9.3 MG/DL (8.5-10.1); Osmolality,Calculated 270.8 MOS/KG (273-304); Potassium 3.6 MMOL/L (3.5-5.1)
[2021-04-18] MEDS ORDERED: MAGNESIUM SULF RIDER 4 GM/100 ML PREMIX IV ONE (08:00)
[2021-04-18] MEDS: PANTOPRAZOLE 40 MG TABLET PO SCH (08:39)
[2021-04-18] MEDS: amLODIPine 10 MG TABLET PO SCH (08:39)
[2021-04-18] MEDS: POTASSIUM CHLORIDE 20 MEQ TABLET PO SCH (08:39)
[2021-04-18] MEDS: LOSARTAN 50 MG TABLET PO SCH (08:39)
[2021-04-18] MEDS: TAMSULOSIN 0.4 MG CAPSULE PO SCH (08:39)
[2021-04-18] MEDS: DOCUSATE SODIUM 100 MG CAPSULE PO SCH ×3 (08:39→22:49)
[2021-04-18] MEDS: allopurinoL 100 MG TABLET PO SCH ×3 (08:40→22:50)
[2021-04-18] MEDS: POLYETHYLENE GLYCOL POWDER 17 GM PACK PO SCH (08:40)
[2021-04-18] MEDS ORDERED: FUROSEMIDE 40 MG/4 ML VIAL IV ONE (14:45)
[2021-04-18] MEDS: methylPREDNISolone SOD SUC 40 MG/1 ML VIAL IV SCH ×2 (15:05→22:44)
[2021-04-18] MEDS: ALBUTEROL/IPRATROPIUM 3 ML NEB RESP TX SCH ×2 (15:08→19:40)
[2021-04-18] MEDS: ACETAMINOPHEN 325 MG TABLET PO PRN (15:49)
[2021-04-18] MEDS: ENOXAPARIN 40 MG/0.4 ML SYRINGE SUBCUT SCH (21:03)
[2021-04-18] MEDS: SIMVASTATIN 20 MG TABLET PO SCH ×2 (21:03→22:49)
[2021-04-18 22:39] LABS: ABG Base Excess -0.4 MMOL/L (-2.5-2.5); ABG Oxygen Saturation 93.8 % (95-100); ABG PCO2 32.4 MM HG (35-48); ABG PH 7.456 (7.35-7.45); ABG PO2 70.5 MM HG (80-95); ABG TCO2 20.4 MMOL/L (23-27)
[2021-04-19] MEDS: METOPROLOL TARTRATE 5 MG/5 ML VIAL IV SCH ×3 (00:28→12:52)
[2021-04-19] MEDS: ALBUTEROL/IPRATROPIUM 3 ML NEB RESP TX SCH ×3 (00:32→13:55)
[2021-04-19 06:59] LABS: Basophils % 0.1 % (0.0-0.8); Hemoglobin 10.4 GM/DL (14.0-18.0); Immature Granulocytes % 1.2 %; Immature Granulocytes Absolute 0.21 #; Lymphocytes # 1.5 10*3/uL (1.4-4.0); Lymphocytes % 8.3 % (21.2-54.2); Mean Corpuscular HGB Conc 32.5 GM/DL (32-36); Mean Corpuscular Volume 90.9 FL (87-102); Mean Platelet Volume 10.7 FL (9.6-12.0); Monocytes % 1.7 % (1.7-12.7); Neutrophils % 88.7 % (38.7-73.9); Platelet Count 419 T/CUMM (130-400); Red Blood Count 3.52 MC/CUMM (3.8-5.5); Red Cell Distribution Width 15.1 % (9.3-17.3); White Blood Count 18.2 T/CUMM (4-12)
[2021-04-19 07:40] LABS: Calcium 9.3 MG/DL (8.5-10.1); Osmolality,Calculated 279.7 MOS/KG (273-304); Potassium 3.9 MMOL/L (3.5-5.1)
[2021-04-19] MEDS: TAMSULOSIN 0.4 MG CAPSULE PO SCH (08:24)
[2021-04-19] MEDS: PANTOPRAZOLE 40 MG TABLET PO SCH (08:24)
[2021-04-19] MEDS: LOSARTAN 50 MG TABLET PO SCH (08:24)
[2021-04-19] MEDS: allopurinoL 100 MG TABLET PO SCH (08:24)
[2021-04-19] MEDS: POTASSIUM CHLORIDE 20 MEQ TABLET PO SCH (08:24)
[2021-04-19] MEDS: DOCUSATE SODIUM 100 MG CAPSULE PO SCH (08:24)
[2021-04-19] MEDS: amLODIPine 10 MG TABLET PO SCH (08:24)
[2021-04-19] MEDS: methylPREDNISolone SOD SUC 40 MG/1 ML VIAL IV SCH ×2 (08:24→14:28)
[2021-04-19] MEDS: POLYETHYLENE GLYCOL POWDER 17 GM PACK PO SCH (09:51)
[2021-04-19 11:23] VITALS: BP 143/97
== END 2021-04-19 15:06 | disposition swing bed (61) | DRG 388 ==
LOC: EDUNIT# → EDBD → N.EDINP 12:05 → N.ED 12:05 → N.3E 17:33 → SUATTDRO 04-09 10:54
PROVIDERS: ADMIT Internal Medicine; ATTEND Internal Medicine